=== PATIENT | female | born 2000 | race Caucasian/White ===

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

== ENCOUNTER 2018-03-03 21:37 | Emergency (ER) | END 2018-03-04 01:10 | disposition home or self-care (01) ==

== ENCOUNTER 2018-10-11 00:15 | Outpatient (CLI) | payer SELFPAY ==
[~2018-10-11] VITALS: Ht 152.4 cm; Wt 77.4 kg
[~2018-10-11 00:15] MED LIST: ACET325T33 PO; IBUP-1542 PO; ONDA4TAB14 PO
[2018-10-11 00:47] VITALS: Ht 152.4 cm; Wt 77.4 kg
[2018-10-11] MEDS ORDERED: PREN1TAB91 PO (00:50)
--- NOTE | 2018-10-11 03:39 | PN ---
Triage Information Date/Time October 11, 2018 Reason for visit: Uterine contractions Weeks of Gestation 36w 6d /Para 1/0 Diabetes: none Hypertention: none Additional information Pt came in with contractions q 6-7 minutes since 2099. Objective BP 114/75 T=98.3 Heart Rate: 140's Heart Rate Comments Accels to 160 BPM. No decels. Contractions: >10 Minutes Apart Exam closed/posterior Disposition: Discharge Assessment/Plan A: IUP at 36w 6d. False labor. P: D/C home. Reviewed labor precautions with the pt. JEANNIE STONE MD Oct 11, 2018 03:39
--- NOTE | 2018-10-11 04:15 | TRIAGE ---
OB Triage Datetime Report Generated by CPN: 10/11/2018 04:15 Datetime: 10/11/2018 03:29 Stage of : OB Triage Labor Evaluation Frequency: 0 Monitor Mode: External Resting Tone [place]: Relaxed Heart Rate FHR Baseline Rate: 130 Monitor Mode: External US Variability: Moderate 6-25 bpm Accelerations: 15X15 Decelerations: None Category: Category I Datetime: 10/11/2018 03:00 Stage of : OB Triage Labor Evaluation Frequency: X2/HR Monitor Mode: External Duration (sec)2399: 40-70 Quality: Mild Pattern: Normal: <= 5 Contractions in 10 Minutes Resting Tone [place]: Relaxed Heart Rate FHR Baseline Rate: 130 Monitor Mode: External US Variability: Moderate 6-25 bpm Accelerations: 15X15 Decelerations: None Category: Category I Datetime: 10/11/2018 02:00 Stage of : OB Triage Labor Evaluation Frequency: X2/HR Monitor Mode: External Duration (sec)2399: 60-100 Quality: Mild Pattern: Normal: <= 5 Contractions in 10 Minutes Resting Tone [place]: Relaxed Heart Rate FHR Baseline Rate: 140 Monitor Mode: External US Variability: Moderate 6-25 bpm Accelerations: 15X15 Decelerations: None Category: Category I Datetime: 10/11/2018 01:04 Vaginal Exam Dilatation (cms): 0.0 Effacement (%): 0 Station: -3 Exam By: JORGE Cervix, Consistency: Moderate Cervix, Position: Posterior Datetime: 10/11/2018 01:00 Stage of : OB Triage Temperature Route: Oral Labor Evaluation Frequency: X1 Monitor Mode: External Duration (sec)2399: 50 Quality: Mild Pattern: Normal: <= 5 Contractions in 10 Minutes Resting Tone [place]: Relaxed Heart Rate FHR Baseline Rate: 140 Monitor Mode: External US Variability: Moderate 6-25 bpm Accelerations: 15X15 Decelerations: None Category: Category I Pain Assessment Pain Scale: 6 Pain Presence: Intermittent Pain Type: Cramping Pain Location: Abdomen Pain Goal: 3 Pain Relief Measures: Comfort Measures Datetime: 10/11/2018 00:41 Assessment Type: Triage Maternal Assessment Level of Consciousness: Keenly Alert, Responsive DTR's/Clonus: DTRs 2+; No Clonus Headache: Denies Blurred Vision: No Respiratory Effort: Unlabored; Regular Rhythm; Equal Expansion Breath Sounds, Left: Clear and Equal Breath Sounds, Right: Clear and Equal Nausea/Vomiting: Denies RUQ Epigastric Pain: Denies Lower Extremities Edema: None Upper Extremities Edema: None Facial Edema: None Fall Risk Assessment History of Falling: (0) No Secondary Diagnosis: (0) No Ambulatory Aid: (0) Bedrest/Nurse Assist IV Therapy: (0) No Gait: (0) Normal/Bedrest/Immobile Mental Status: (0) Oriented to Own Ability Fall Score: 0 Fall Risk Score Definition: No Risk: No action required Datetime: 10/11/2018 00:40 Time of Arrival: 10/11/2018 00:15 EGA: 36.6 Arrived By: Wheelchair Arrived From: Home Chief Complaint: CXS EVRY 6-7 MIN SINCE 2100 Movement: Present Contractions: Irregular Time Contractions Began: 10/10/2018 21:00 Rupture of Membranes: Denies Vaginal Bleeding: None Vaginal Discharge: Denies Recent Sexual Intercouse: Denies Initial Plan: EFM, ASSESSMENT, CALL MD FOR ORDERS
== END 2018-10-11 03:36 | disposition home or self-care (01) ==
LOC: L-D 00:15 → OBT 00:15
PROVIDERS: ATTEND Obstetrics & Gynecology
DX: O47.03 False labor before 37 completed weeks of gestation, third trimester (principal); Z3A.36 36 weeks gestation of pregnancy
CPT/HCPCS: G0463